=== PATIENT | male | born 1975 | race African-American/Black ===

== ENCOUNTER 2018-10-07 20:27 | Emergency (ER) | payer OTHER ==
[~2018-10-07] VITALS: Ht 182.9 cm; Wt 86.2 kg
[~2018-10-07 20:27] MED LIST: AMARYL1 MG; AMARYL2 MG PO; BACTRIM DS TAB1 EACH PO; DESYREL150 MG PO; EAR DROPS15 ML OT; GLUCOPHAGE500 MG PO; LOTRIMIN30 GM TP; NOHOMEMEDICATIONS; NORCO 5-325 TA1 EACH PO; PREDNISONE50 MG PO; TRAZODONE 150150 M1; [UNRECOGNIZED DRUG - OTHER] OTIC
[2018-10-07 21:39] LABS: URINE BILIRUBIN NEGATIVE (Negative); URINE BLOOD NEGATIVE (Negative); URINE CLARITY CLEAR; URINE COLOR YELLOW; URINE GLUCOSE-RANDOM* TRACE (Negative); URINE KETONES NEGATIVE (Negative); URINE LEUKOCYTES-REFLEX NEGATIVE (Negative); URINE NITRITE-REFLEX NEGATIVE (Negative); URINE PROTEIN (DIPSTICK) NEGATIVE (Negative); URINE UROBILINOGEN 0.2 E.U./dl (0.2-1.0)
[2018-10-07] MEDS ORDERED: IBUPROFEN 400400 M2 PO (22:03)
[2018-10-07 23:49] VITALS: BP 129/76
== END 2018-10-07 23:50 | disposition home or self-care (01) ==
LOC: ER 20:27
PROVIDERS: Student in an Organized Health Care Education/Training Program
DX: R07.81 Pleurodynia (principal); J45.909 Unspecified asthma, uncomplicated; E11.9 Type 2 diabetes mellitus without complications; F32.9 Major depressive disorder, single episode, unspecified